=== PATIENT | male | born 1975 | race Caucasian/White ===

== ENCOUNTER 2020-10-29 17:46 | Emergency (ER) | payer MEDICAID ==
[~2020-10-29] VITALS: Ht 185.4 cm; Wt 86.4 kg
[~2020-10-29 17:46] MED LIST: NO HOME MEDS
[2020-10-29] MEDS ORDERED: ondansetron/PF 4mg/2ml inj IV ONE (18:00)
[2020-10-29] MEDS ORDERED: gentamicin in saline, iso-osm 80 MG/50 ML premix IV ONE (18:00)
[2020-10-29] MEDS ORDERED: LIDOcaine 1% W/epiNEPHrine 1:200,000 10ml vial IJ ONE (18:00)
[2020-10-29] MEDS ORDERED: TETanus/Pertussis (Acell)/Diphther VAC/PF (Tdap-Adult) 0.5ml syringe IMVAC ONE (18:00)
[2020-10-29] MEDS ORDERED: fentaNYL/PF 50MCG/1 ML 2ML syringe IV ONE (18:00)
[2020-10-29] MEDS ORDERED: ceFAZolin 1000mg inj IV ONE (18:00)
[2020-10-29 18:04] VITALS: BP 172/124
[2020-10-29] MEDS ORDERED: gentamicin inj 80 MG in normal saline 100ml IV soln 98 ML IV ONE (18:20)
[2020-10-29] MEDS ORDERED: ceFAZolin 2gm in dextrose, iso 50 ML IV ONE (20:15)
[2020-10-29] MEDS ORDERED: CEFEPIME 2gm in D5W 50mL 50 ML IV ONE (20:15)
[2020-10-29] MEDS ORDERED: CLIN150C2 PO (20:28)
[2020-10-29] MEDS ORDERED: CEPH500C5 PO (20:28)
[2020-10-29] MEDS ORDERED: ONDA4TAB6 PO (20:29)
[2020-10-29] MEDS ORDERED: rabies immune globulin/PF 150 unit/ml inj IMVAC STA (20:29)
[2020-10-29] MEDS ORDERED: HYDR-3965 PO (20:29)
[2020-10-29] MEDS ORDERED: rabies vaccine (PCEC)/PF 2.5 unit kit IMVAC ONE (20:30)
== END 2020-10-29 21:32 | disposition home or self-care (01) ==
LOC: ER 17:46
DX: S62.613B Displaced fracture of proximal phalanx of left middle finger, initial encounter for open fracture (principal); S67.193A Crushing injury of left middle finger, initial encounter; Z88.0 Allergy status to penicillin; Z20.3 Contact with and (suspected) exposure to rabies; W54.0XXA Bitten by dog, initial encounter; Y93.89 Activity, other specified; Y92.89 Other specified places as the place of occurrence of the external cause; Y99.9 Unspecified external cause status
CPT/HCPCS: 73140; 90375; 90471; 90472; 90675; 96365; 96367; 96372; 96375; 99284; J1580; J2405; J3010; 90715

== ENCOUNTER 2020-11-02 12:00 | Emergency (ER) | payer MEDICAID ==
[~2020-11-02] VITALS: Ht 185.4 cm; Wt 80.0 kg
[~2020-11-02 12:00] MED LIST changes: +CEPH500C5 PO; +CLIN150C2 PO; +HYDR-3965 PO; +ONDA4TAB6 PO
[2020-11-02 12:02] VITALS: BP 157/101
[2020-11-02] MEDS ORDERED: bacitracin 15gm ointment TP ONE (13:05)
[2020-11-02] MEDS ORDERED: rabies vaccine (PCEC)/PF 2.5 unit kit IMVAC ONE (13:05)
== END 2020-11-02 13:57 | disposition home or self-care (01) ==
LOC: ER 12:00
DX: Z48.00 Encounter for change or removal of nonsurgical wound dressing (principal); S61.213D Laceration without foreign body of left middle finger without damage to nail, subsequent encounter; Z88.0 Allergy status to penicillin; Z20.3 Contact with and (suspected) exposure to rabies; Z79.2 Long term (current) use of antibiotics; Z79.899 Other long term (current) drug therapy; Z29.14 Encounter for prophylactic rabies immune globulin; W54.0XXD Bitten by dog, subsequent encounter
CPT/HCPCS: 90471; 90675; 99284